=== PATIENT | male | born 1990 | race Two or more races ===

== ENCOUNTER 2019-07-18 18:01 | Emergency (ER) | payer MEDICAID ==
[~2019-07-18] VITALS: Ht 167.6 cm; Wt 62.0 kg
[2019-07-18] MEDS ORDERED: CEFTRIAXONE SODIUM 250 MG/VIAL IM ONE (20:00)
[2019-07-18] MEDS ORDERED: LEVOFLOXACIN 500MG PREMIX 100 ML IV ONE (20:00)
[2019-07-18 20:13] LABS: CLARITY URINE CLEAR (CLEAR); COLOR URINE YELLOW (YELLOW); KETONES URINE NEGATIVE (NEGATIVE); LEUKOCYTE ESTERASE URINE NEGATIVE (NEGATIVE); NITRITE URINE NEGATIVE (NEGATIVE); OCCULT BLOOD URINE NEGATIVE (NEGATIVE); PH URINE 5.5 (4.5-8.0); PROTEIN URINE NEGATIVE (NEGATIVE); SPECIFIC GRAVITY URINE 1.014 (1.005-1.030); UROBILINOGEN URINE 0.2 E.U./dL (0.2-1.0)
[2019-07-18 20:59] LABS: BASOPHILS % 0.2 % (0.0-2.0); EOSINOPHILS % 1.6 % (0.0-5.0); HEMATOCRIT. 42.5 % (42.0-52.0); HEMOGLOBIN. 14.5 g/dL (14.0-18.0); LYMPHOCYTES % 11.3 % (20.0-50.0); MEAN CORPUSCULAR HEMOGLOBIN 31.1 pg (28.0-32.0); MEAN CORPUSCULAR VOLUME 90.9 fL (80.0-94.0); MEAN PLATELET VOLUME 8.8 fl (7.4-10.4); MONOCYTES % 12.1 % (2.0-8.0); NEUTROPHILS % 74.8 % (40.0-76.0); PLATELET 234 x1000/uL (130-400); RED BLOOD CELL COUNT 4.67 mill/uL (4.7-6.1); RED CELL DISTRIBUTION WIDTH 13.4 % (11.6-14.6)
[2019-07-18] MEDS ORDERED: LEVOFLOXACIN 500MG TABLET PO ONE (21:00)
[2019-07-18 21:10] LABS: PARTIAL THROMBOPLASTIN TIME 27.8 sec (23.4-31.0); PROTHROMBIN TIME 10.4 sec (9.6-11.0)
[2019-07-18 21:21] LABS: CHLORIDE 103 mEq/L (98-107)
[2019-07-18 22:20] VITALS: BP 146/79
[2019-07-21 04:06] LABS: NEISSERIA GONORRHOEAE NAA Negative (Negative)
== END 2019-07-18 22:24 | disposition home or self-care (01) ==
LOC: ER 18:01
DX: N44.00 Torsion of testis, unspecified (principal); Z90.49 Acquired absence of other specified parts of digestive tract
CPT/HCPCS: 36415; 76870; 80053; 81003; 85025; 85610; 85730; 87086; 87491; 87591; 93976; 96372; 99284; J0696; J1956